=== PATIENT | male | born 1985 | race Caucasian/White ===

== ENCOUNTER 2021-11-22 23:03 | Emergency (ER) | payer OTHER ==
[~2021-11-22] VITALS: Ht 170.2 cm; Wt 74.8 kg
--- NOTE | 2021-11-22 23:08 | NUR ---
Pt ambulated to ER for psych eval. pt states "things are not adding up". He did not go into further detail. clear speech. denies pain. no sob. no chest pain. afebrile.
--- NOTE | 2021-11-22 23:10 | NUR ---
Dr Rios at bedside for MSE.
[2021-11-23 00:10] LABS: HEMATOCRIT 41.5 % (36.7-47.1); MEAN CORPUSCULAR HEMOGLOBIN 29.4 uug (23.8-33.4); MEAN CORPUSCULAR VOLUME 86.7 fL (73.0-96.2); PLATELET COUNT (AUTO) 246 K/uL (152-348)
[2021-11-23 00:21] LABS: ETHANOL < 3 MG/DL (0-0)
[2021-11-23 00:22] LABS: *BILIRUBIN,URIN 2+ (NEGATIVE); *BLOOD, URINE NEGATIVE (NEGATIVE); *CLARITY,URINE CLEAR (CLEAR); *COLOR,URINE YELLOW (YELLOW); *KETONES,URINE 4+ (NEGATIVE); *UROBILINOGEN,URINE 0.2 E.U./dl (NORMAL); LEUKOCYTE ESTERASE ,URINE NEGATIVE (NEGATIVE); NITRITE, URINE NEGATIVE (NEGATIVE); UGLUCOSE NEGATIVE (NEGATIVE)
[2021-11-23 00:36] LABS: ALANINE AMINOTRANSFERASE 39 U/L (16-63); ALKALINE PHOSPHATASE 63 U/L (50-136); ASPARTATE AMINOTRANSFERASE 29 U/L (15-37); BILIRUBIN,DIRECT 0.2 mg/dL (0.0-0.2); BILIRUBIN,TOTAL 0.9 mg/dL (0.2-1.0); CARBON DIOXIDE 29 mmol/L (21-32); CHLORIDE 107 mmol/L (98-107); CREATINE KINASE, TOTAL 541 U/L (39-308); CREATININE 0.9 mg/dL (0.6-1.3); GLUCOSE 84 mg/dL (74-106); POTASSIUM 4.2 mmol/L (3.5-5.1); TOTAL PROTEIN, SERUM 7.4 g/dL (6.4-8.2); UREA NITROGEN, BLOOD 20 mg/dL (7-18)
[2021-11-23 00:38] LABS: ACETAMINOPHEN < 2.0 ug/mL (10-30)
--- NOTE | 2021-11-23 00:57 | NUR ---
Called Dylan Trujillo for psych evaluation.
[2021-11-23 01:09] LABS: *AMPHETAMINE, URINE NEGATIVE (NEGATIVE); *CANNABINOID, URINE NEGATIVE (NEGATIVE); *COCCAINE, URINE NEGATIVE (NEGATIVE); *OPIATE, URINE NEGATIVE (NEGATIVE); *PHENCYCLIDINE SCREEN,URINE NEGATIVE (NEGATIVE)
--- NOTE | 2021-11-23 01:40 | NUR ---
Art Capilla at bedside for psych evaluation
--- NOTE | 2021-11-23 02:10 | NUR ---
Called [employer]. No ETA.
--- NOTE | 2021-11-23 03:23 | NUR ---
Patient discharged to home in stable condition via Taxi. Written and verbal after care instructions given. Patient verbalizes understanding of instructions. Stressed follow up or return to ER for worsening s/s.
[2021-11-23 03:24] VITALS: BP 128/88
== END 2021-11-23 03:24 | disposition home or self-care (01) ==
LOC: ER 23:10
DX: F41.9 Anxiety disorder, unspecified (principal); Z59.00 Homelessness unspecified; F17.210 Nicotine dependence, cigarettes, uncomplicated; F43.10 Post-traumatic stress disorder, unspecified
CPT/HCPCS: 36415; 84443; 85025; A4663; G0480